=== PATIENT | male | born 1980 | race Caucasian/White ===

== ENCOUNTER 2024-06-11 09:26 | Emergency (ER) | payer BC, SELFPAY ==
[2024-06-11] VITALS (11 sets, daily range): BP systolic 104–121; BP diastolic 50–77; PULSE 60–87; RESP 12–20; TEMP 36.6; O2SAT 100
--- NOTE | ~2024-06-11 | XR_ITS ---
XR chest 2V DATE: 06/11/2024 10:11 INDICATION: Left chest pain starting this morning TECHNIQUE: PA and lateral views COMPARISON: None FINDINGS: Normal heart size. No hilar or mediastinal enlargement. No pulmonary infiltrate or consolidation, pleural effusion or pulmonary vascular congestion or pneumo thorax. Included skeletal structures are unremarkable minimal degenerative spurring of the thoracic spine. IMPRESSION: No active cardiopulmonary disease Reviewed, dictated and finalized at location J.
--- NOTE | 2024-06-11 09:27 | ECG_ITS ---
Test Date: 2024-06-11 09:37:55 Measurements Intervals [place] Rate: 41 P: 52 UT: 136 QRS: 82 QRSD: 105 T: 35 QT: 421 QTc: 348 Interpretive Statements SINUS BRADYCARDIA CANNOT R/O SEPTAL INFARCT, AGE INDETERMINATE BASELINE WANDER- I, III, V1, V4-V6 ABNORMAL ECG No previous ECG available for comparison Electronically Signed On 06-11-2024 12:40:33 CDT by David Blake D.O.
--- NOTE | 2024-06-11 09:28 | ECG_ITS ---
Test Date: 2024-06-11 12:21:46 Measurements Intervals [place] Rate: 73 P: 53 NE: 145 QRS: 47 QRSD: 102 T: 35 QT: 380 QTc: 420 Interpretive Statements SINUS RHYTHM NORMAL ECG Compared to ECG 06/11/2024 09:37:55 Sinus bradycardia no longer present Electronically Signed On 06-11-2024 12:44:11 CDT by David Blake D.O.
--- NOTE | 2024-06-11 09:36 | ED.CHESTPAIN ---
HPI - Chest Pain General Chief Complaint: Chest Pain Stated Complaint: chest pain Time Seen by Provider: 06/11/24 09:46 History of Present Illness HPI narrative: 43-year-old male presenting to the emergency department for evaluation of chest pain. Patient states he was working on house repairs when he had onset sharp chest pain. Patient states chest pain is worsened with movement. Patient states he had just lifted some saw horses and to the back of the truck which required lifting and twisting. Patient does have history of high cholesterol but is on medication for this. Patient denies any prior history of coronary artery disease. Patient has not had a stress test. Patient states that both his daughter and were diagnosed with COVID last week. Related Data Allergies Allergy/AdvReac Type Severity Reaction Status Date / Time No Known Allergies Allergy Verified 06/11/24 10:05 Review of Systems Review of Systems: All systems reviewed & are unremarkable except as noted in HPI and below PMFSH Social History Social History Smoking status: Never smoker Alcohol intake: current Exam Narrative: APPEARANCE: Well appearing, no pain, no distress, well-nourished. HEAD: normocephalic, atraumatic. EYES: PERRLA/EOMI, conjunctivae clear. NOSE: Normal no drainage EARS:TMS clear with good light reflex. THROAT: Pharynx clear, no exudate. NECK: Supple. No adenopathy, no masses. RESPIRATORY: Airway patent, respirations nonlabored. Clear to auscultation bilaterally, no rales, rhonchi, wheezing. CARDIOVASCULAR: Regular rate and rhythm without murmurs rubs or gallops. ABDOMINAL: Soft, nontender, nondistended, normal bowel sounds MUSCULOSKELETAL: Moves all extremities. Strength/ROM intact, No edema, No calf tenderness. Mild left lower rib tenderness to palpation, no crepitus, no ecchymosis, no deformity NEURO: Alert. Cranial nerves II through XII intact. Good gait. Good coordination SKIN: Warm, dry. Normal Color Course Course Emergency Course: Patient was discharged from the emergency department with instructions for close outpatient follow-up. Vital Signs Vital signs: Vital Signs Temperature 97.9 F 06/11/24 09:30 Pulse Rate 60 06/11/24 09:30 Respiratory Rate 16 06/11/24 09:30 Blood Pressure 104/50 L 06/11/24 09:30 Pulse Oximetry 100 06/11/24 09:30 Oxygen Delivery Room Air 06/11/24 09:30 Temperature 97.9 F 06/11/24 09:30 Pulse Rate 80 06/11/24 12:55 Respiratory Rate 20 06/11/24 12:55 Blood Pressure 119/71 06/11/24 12:55 Pulse Oximetry 100 06/11/24 12:55 Oxygen Delivery Room Air 06/11/24 09:30 MDM - Chest Pain MDM Narrative Medical decision making narrative: 43-year-old male presents to the emergency department for evaluation for acute onset of left-sided chest pain. Patient states pain is completely resolved. Patient is afebrile with no leukocytosis and a stable hemoglobin of 15.3. Patient has no acute abnormalities his CMP patient's D-dimer was not elevated. Patient had negative serial troponins. Lipase not elevated. Patient was negative for influenza RSV and for COVID. Chest x-ray shows no acute cardiopulmonary abnormality. EKGs showed no evidence of acute STEMI. On re-evaluation patient states he has been pain-free. Suspect musculoskeletal etiology since patient was lifting and twisting when he had onset of the pain. Patient states that it was not necessarily chest but indicates lower ribs/upper abdomen. Patient was updated the results of his workup patient was encouraged of close follow-up with his primary care physician for additional outpatient cardiac testing. Patient was advised to take Tylenol and ibuprofen for pain control if it was to return. Differential Diagnosis Differential diagnosis: Likely fracture of rib, pneumothorax, unstable angina pectoris, atypical chest pain, costochondritis, chest pain and biliary colic Lab Data Attestation: I reviewed the pat
[2024-06-11 09:50] LABS: Basophils Percent Auto 0.8 % (0.2-1.2); Eosinophils Absolute Auto 0.1 K/mm3 (0-0.3); Eosinophils Percent Auto 1.9 % (0-4.4); Hematocrit 45.6 % (42.0-52.0); Hemoglobin 15.3 g/dL (14.0-18.0); Lymphocytes Absolute Auto 1.14 K/mm3 (0.9-3.2); Lymphocytes Percent Auto 30.9 % (18.3-44.2); Mean Corpuscular HGB Conc 33.6 g/dl (32-36); Mean Corpuscular Hemoglobin 29.7 pg (26-34); Mean Corpuscular Volume 88.4 fl (80-100); Mean Platelet Volume 10.2 fl (7.4-10.4); Monocytes Absolute Auto 0.4 K/mm3 (0.1-0.6); Monocytes Percent Auto 10.8 % (2.6-8.5); Neutrophils Absolute Auto 2.1 K/mm3 (1.3-6.7); Neutrophils Percent Auto 55.6 % (45.5-73.1); Platelet Count Result 186 k/mm3 (150-375); Red Blood Count 5.16 M/mm3 (4.6-6.20); Red Cell Distribution Width 12.1 % (11.5-14.5); White Blood Count 3.7 K/mm3 (4.5-10.0)
[2024-06-11] MEDS: ASPIRIN 81 MG CHEWABLE TABLET 324 MG PO (09:56)
[2024-06-11 10:00] LABS: Alanine Aminotransferase 51 U/L (6-50); Albumin Level 4.8 g/dL (3.5-5.1); Alkaline Phosphatase 62 U/L (38-126); Anion Gap 12 mmol/L (4-12); Aspartate Amino Transferase 28 U/L (17-59); Bilirubin,Total 1.6 mg/dL (0.2-1.3); Blood Urea Nitrogen 11 mg/dL (9-20); Calcium 9.4 mg/dL (8.4-10.2); Carbon Dioxide 26 mmol/L (22-30); Chloride 101 mmol/L (98-107); Estimated CRCL calculation 103 ml/min; Estimated Glomerular Filt Rate > 60; Glucose 92 mg/dL (65-110); Lipase 71 U/L (23-300); Potassium 3.7 mmol/L (3.4-5.0); Prothrombin Time 13.8 Seconds (11.1-14.7); Sodium 139 mmol/L (137-145)
[2024-06-11 10:04] LABS: D Dimer < 0.27 ug/mL (<0.48)
[2024-06-11 10:12] LABS: Troponin I < 0.012 ng/mL (0.000-0.034)
[2024-06-11 10:26] LABS: Influenza A QL RT-PCR Negative (Negative); Influenza B QL RT-PCR Negative (Negative); RSV RNA, RT-PCR Negative (Negative); SARS-CoV-2 RNA PCR Negative (Negative)
[2024-06-11 12:44] LABS: Troponin I < 0.012 ng/mL (0.000-0.034)
== END 2024-06-11 12:55 | disposition home or self-care (01) ==
PROVIDERS: Emergency Provider Emergency Medicine; PCP Family Medicine Adolescent Medicine
DX: R07.89 Other chest pain (principal); R00.1 Bradycardia, unspecified
CPT/HCPCS: 36415; 71046; 80053; 83690; 84484; 85025; 85380; 85610; 85730; 87637; 93005; 99284; A9270